=== PATIENT | female | born 1985 | race Caucasian/White ===

== ENCOUNTER → 2016-09-12 | Outpatient (CLI) | payer MEDICAID, OTHER ==
[2016-09-20 16:03] LABS: HPV 16 Not Detected (NOTDET); HPV 18 Not Detected (NOTDET)
== END ==
LOC: MW.CHOBGYN 15:42
PROVIDERS: ATTEND Nurse Practitioner Women's Health
DX: Z12.4 Encounter for screening for malignant neoplasm of cervix (principal); Z20.2 Contact with and (suspected) exposure to infections with a predominantly sexual mode of transmission; T83.32XA Displacement of intrauterine contraceptive device, initial encounter; Z11.51 Encounter for screening for human papillomavirus (HPV)
CPT/HCPCS: 81025; 87491; 87591; 87624; G0145

== ENCOUNTER 2024-12-17 16:24 | Emergency (ER) | payer MEDICAID ==
[2024-12-17] MEDS: Diphtheria,Pertussis(Acell),Tetanus Vaccine 0.5 ML Syringe IM ONE (17:35)
[2024-12-17] MEDS: metroNIDAZOLE 250 MG Tab PO ONE (18:32)
[2024-12-17] MEDS: Bacitracin Oint 1 GM U/D Packet TOP ONE (18:32)
[2024-12-17] MEDS: cefTRIAXone 1 GM Vial IM ONE (18:33)
[2024-12-17] MEDS: Acetaminophen/HYDROcodone 325-5 MG Tab PO ONE (18:34)
[2024-12-17] MEDS: Lidocaine 1% 5 ML VIAL INJECT ONE (18:34)
== END 2024-12-17 19:40 | disposition home or self-care (01) ==
LOC: MW.ED 16:24
DX: S61.051A Open bite of right thumb without damage to nail, initial encounter (principal); S61.256A Open bite of right little finger without damage to nail, initial encounter; S61.254A Open bite of right ring finger without damage to nail, initial encounter; S61.451A Open bite of right hand, initial encounter; I10 Essential (primary) hypertension; Z75.3 Unavailability and inaccessibility of health-care facilities; Z23 Encounter for immunization; Z79.899 Other long term (current) drug therapy; W54.0XXA Bitten by dog, initial encounter; Y93.89 Activity, other specified
CPT/HCPCS: 12002; 73130; 90471; 96372; 99283; A9270; J0696; J2003; 99284

== ENCOUNTER 2025-01-10 08:23 | Day surgery (SDC) | payer MEDICAID ==
[~2025-01-10 08:23] MED LIST: Albuterol 0.083% 2.5 MG/3 ML Neb Soln NEB PRN; Naloxone 0.4 MG/ML SDV IVPUSH PRN; Ondansetron 4 MG/2 ML SDV IVPUSH PRN; Sodium Chloride 0.9% 10 ML Syringe FLUSH PRN; Sodium Chloride 0.9% 2.5 ML Syringe FLUSH PRN; fentaNYL 50 MCG/ML SDV IVPUSH PRN
[2025-01-10] MEDS ORDERED: fentaNYL 100 MCG/2 ML SDV ONE (09:17)
[2025-01-10] MEDS ORDERED: Propofol 200 MG/20 ML SDV ONE (09:17)
[2025-01-10] MEDS: Lactated Ringers 1,000 ML IV SCH (09:22)
[2025-01-10] MEDS ORDERED: Dexamethasone 4 MG/ML 5 ML MDV ONE (09:30)
[2025-01-10] MEDS ORDERED: Magnesium Sulfate (4.06 MEQ/ML) 5 GM/10 ML SDV ONE (09:30)
[2025-01-10] MEDS ORDERED: Ondansetron 4 MG/2 ML SDV ONE ×2 (09:30)
[2025-01-10] MEDS ORDERED: propofoL 1,000 MG/100 ML 100 ML ONE (09:32)
[2025-01-10] MEDS ORDERED: Morphine 10 MG/ML SDV ONE (09:37)
[2025-01-10] MEDS ORDERED: Ketorolac 30 MG/ML SDV ONE (09:37)
== END 2025-01-10 11:30 | disposition home or self-care (01) ==
LOC: MW.SDS 08:23
PROVIDERS: ATTEND Obstetrics & Gynecology
DX: N84.0 Polyp of corpus uteri (principal); I10 Essential (primary) hypertension; Z87.891 Personal history of nicotine dependence; Z79.899 Other long term (current) drug therapy
CPT/HCPCS: 57505; 58558; J1100; J1885; J2003; J2272; J2405; J2704; J2765; J3010; J3475; J7120; 00952